=== PATIENT | male | born 1980 | race Hispanic/Latino ===

== ENCOUNTER 2020-01-06 18:49 | Inpatient (IN) | payer BC ==
[~2020-01-06] VITALS: Ht 181.6 cm; Wt 184.6 kg
[2020-01-06] MEDS ORDERED: ACETAMINOPHEN 325 MG TAB PO ONE ×2 (19:15→19:45)
[2020-01-06] MEDS ORDERED: SODIUM CHLORIDE 0.9% 1000ML 1,000 ML IV ONE (19:15)
[2020-01-06 19:22] LABS: BASOPHILS # (AUTO) 0.1 (0.0-0.1); BASOPHILS % 0.4 % (0.0-1.0); EOSINOPHILS % 0.2 % (0.0-6.0); HEMATOCRIT 42.1 % (38.2-49.6); HEMOGLOBIN 13.7 g/dL (14.0-18.0); LYMPHOCYTES # (AUTO) 1.5 (1.0-3.2); MEAN CORPUSCULAR HEMOGLOBIN 25.4 pg (28-32); MEAN CORPUSCULAR HGB CONC 32.5 g/dL (31-35); MONOCYTES # (AUTO) 1.6 (0.2-0.8); MONOCYTES % 6.4 % (4.4-11.3); NEUTROPHILS # (AUTO) 21.3 (2.1-6.9); NEUTROPHILS % 86.1 % (38.7-80.0); PLATELET COUNT 267 x10e3/uL (140-360); RED CELL DISTRIBUTION WIDTH 14.3 % (11.7-14.4)
[2020-01-06 19:32] LABS: BILIRUBIN,URINE NEGATIVE (NEGATIVE); CLARITY,URINE SL CLOUDY (CLEAR); COLOR,URINE YELLOW (YELLOW); KETONES,URINE NEGATIVE (NEGATIVE); LEUKOCYTE ESTERASE ,URINE NEGATIVE (NEGATIVE); NITRITE,URINE NEGATIVE (NEGATIVE); PROTEIN,URINE DIPSTICK 1+ (NEGATIVE); URINE UROBILINOGEN 0.2 mg/dL (0.2 - 1)
[2020-01-06 19:37] LABS: INR 1.03; PROTHROMBIN TIME 13.7 seconds (11.9-14.5)
[2020-01-06 19:38] LABS: PARTIAL THROMBOPLASTIN TIME 30.2 seconds (23.8-35.5)
[2020-01-06 19:44] LABS: ALANINE AMINOTRANSFERASE 33 IU/L (0-55); ALBUMIN 4.1 g/dL (3.5-5.0); ALKALINE PHOSPHATASE 94 IU/L (40-150); ANION GAP 17.5 mmol/L (8-16); BLOOD UREA NITROGEN 11 mg/dL (7-26); BUN/CREATININE RATIO 12 (6-25); CALCIUM 9.5 mg/dL (8.4-10.2); CARBON DIOXIDE 22 mmol/L (22-29); CHLORIDE 101 mmol/L (98-107); CREATINE KINASE 162 IU/L (30-200); CREATININE, SERUM 0.94 mg/dL (0.72-1.25); EST GLOMERULAR FILTRATION RATE > 60 ML/MIN (60-); GLUCOSE 113 mg/dL (74-118); POTASSIUM 3.5 mmol/L (3.5-5.1); SODIUM 137 mmol/L (136-145)
[2020-01-06] MEDS ORDERED: PIPER-TAZ 3.375 GM 50 ML IV STA (19:46)
[2020-01-06] MEDS ORDERED: VANCOMYCIN 1GM/NS 250 ML 250 ML IV STA (19:52)
[2020-01-06] MEDS ORDERED: SODIUM CHLORIDE 0.9% 1000ML 2,000 ML ONE (19:59)
--- NOTE | 2020-01-06 20:00 | NUR ---
US TECH AT PTS BS
--- NOTE | 2020-01-06 20:26 | Diagnostic Imaging Report ---
EXAMINATION: CHEST SINGLE (PORTABLE) INDICATION: Fever ^DX ^[id number] ^1959 ^Y COMPARISON: None FINDINGS: TUBES and LINES: None. LUNGS: Perihilar peribronchial hazy opacity could be due to bronchitis. No consolidated pneumonia PLEURA: No pleural effusion or pneumothorax. HEART AND MEDIASTINUM: The cardiomediastinal silhouette is unremarkable. BONES AND SOFT TISSUES: No acute osseous lesion. Soft tissues are unremarkable. UPPER ABDOMEN: No free air under the diaphragm. IMPRESSION: Perihilar peribronchial hazy opacity could be due to bronchitis. No consolidated pneumonia Signed by: Dr. Jayden Richey M.D. on 01/06/2020 8:23 PM
[2020-01-06] MEDS ORDERED: ONDANSETRON HCL INJ 2MG/ML 2ML 2 MG/ML VIAL IV PRN (21:15)
--- OUTSIDE RECORDS SUMMARY | 2020-01-06 22:00 | XMS REPORT ---
Author [facility] Address Unknown Phone Unavailable Care Team Providers Care Application Support Engineer Name Role Phone Galindo SHEPPARD Unavailable Unavailable Problems This patient has no known problems. Allergies, Adverse Reactions, Alerts This patient has no known allergies or adverse reactions. Medications This patient has no known medications. Results Test Description Test Time Test Comments Text Results Atomic Results Result Comments CHEST SINGLE (PORTABLE) 2020-01-06 20:22:00 [place] [address] Patient Name: SUDHA STEELE MR #: [id number] : 1980 Age/Sex: 39/M Req #: [id number] Adm Physician: Ordered by: TARIK SLAUGHTER MD Report #: [id number] Location: ER Room/Bed: Procedure: [id number] DX/CHEST SINGLE (PORTABLE) Exam Date: 01/06/20 Exam Time: 1959 REPORT STATUS: Signed EXAMINATION: CHEST SINGLE (PORTABLE) INDICATION: Fever DX [id number] Y COMPARISON: None FINDINGS: TUBES and LINES: None. LUNGS: Perihilar peribronchial hazy opacity could be due to bronchitis. No consolidated pneumonia PLEURA: No pleural effusion or pneumothorax. HEART AND MEDIASTINUM: The cardiomediastinal silhouette is unremarkable. BONES AND SOFT TISSUES: No acute osseous lesion. Soft tissues are unremarkable. UPPER ABDOMEN: No free air under the diaphragm. IMPRESSION: Perihilar peribronchial hazy opacity could be due to bronchitis. No consolidated pneumonia Signed by: Dr. Jayden Richey M.D. on 01/06/2020 8:23 PM Dictated By: JAYDEN RICHEY MD, MD 22 Transcribed By: WILLIAN on 01/06/202022 COPY TO: TARIK SLAUGHTER MD
--- NOTE | 2020-01-06 23:00 | NUR ---
Pt admitted to room 201 via WC from home. Pt alert and oriented to name, hospital, diagnosis: cellulitis RLE and severe sepsis. RLE red, warm to touch, and edematous non pitting. Pt morbid obese. Lungs CTA. Last BM 01/06, brown, soft. Continent B/B. Denies dysuria. 20g IV right FA patent, flushed with 10ml NS. Oriented to room. Call light within reach. Bed low and locked.
[2020-01-06] MEDS: SODIUM CHLORIDE 0.9% 1000ML 1,000 ML IV SCH (23:05)
[2020-01-06 23:22] VITALS: BP 139/89
[2020-01-06] MEDS: ACETAMINOPHEN 325 MG TAB PO PRN (23:45)
[2020-01-06 23:51] VITALS: BP 139/89
[2020-01-06] MEDS ORDERED: INFLUENZA VIRUS VAC SPLIT INJ 0.5 ML SYR IM SCH (23:53)
[2020-01-07] MEDS: PIPER-TAZ 3.375 GM 50 ML IV SCH ×3 (04:22→20:15)
[2020-01-07 05:17] LABS: BASOPHILS # (AUTO) 0.1 (0.0-0.1); BASOPHILS % 0.5 % (0.0-1.0); EOSINOPHILS % 0.1 % (0.0-6.0); HEMATOCRIT 38.7 % (38.2-49.6); HEMOGLOBIN 12.5 g/dL (14.0-18.0); LYMPHOCYTES # (AUTO) 1.4 (1.0-3.2); LYMPHOCYTES % 8.1 % (18.0-39.1); MEAN CORPUSCULAR HEMOGLOBIN 25.4 pg (28-32); MEAN CORPUSCULAR HGB CONC 32.3 g/dL (31-35); MEAN CORPUSCULAR VOLUME 78.7 fL (81-99); MONOCYTES # (AUTO) 0.7 (0.2-0.8); MONOCYTES % 4.3 % (4.4-11.3); NEUTROPHILS # (AUTO) 14.7 (2.1-6.9); NEUTROPHILS % 86.6 % (38.7-80.0); PLATELET COUNT 190 x10e3/uL (140-360); RED BLOOD COUNT 4.92 x10e6/uL (4.3-5.7); RED CELL DISTRIBUTION WIDTH 14.4 % (11.7-14.4)
[2020-01-07 05:37] LABS: ALANINE AMINOTRANSFERASE 25 IU/L (0-55); ALBUMIN 3.3 g/dL (3.5-5.0); ALKALINE PHOSPHATASE 85 IU/L (40-150); ANION GAP 13.1 mmol/L (8-16); BLOOD UREA NITROGEN 10 mg/dL (7-26); BUN/CREATININE RATIO 12 (6-25); CALCIUM 8.5 mg/dL (8.4-10.2); CARBON DIOXIDE 23 mmol/L (22-29); CHLORIDE 104 mmol/L (98-107); CREATININE, SERUM 0.84 mg/dL (0.72-1.25); EST GLOMERULAR FILTRATION RATE > 60 ML/MIN (60-); GLUCOSE 104 mg/dL (74-118); POTASSIUM 3.1 mmol/L (3.5-5.1); SODIUM 137 mmol/L (136-145)
[2020-01-07] MEDS ORDERED: POTASSIUM CHLORIDE 10MEQ EA PO ONE (06:00)
[2020-01-07 08:30] VITALS: BP 154/89
[2020-01-07] MEDS: ACETAMINOPHEN 325 MG TAB PO PRN (08:30)
[2020-01-07] MEDS: VANCOMYCIN 1GM/NS 250 ML 250 ML IV SCH ×2 (08:30→21:30)
[2020-01-07 08:37] VITALS: BP 154/89
[2020-01-07 12:00] VITALS: BP 148/76
[2020-01-07 16:00] VITALS: BP 157/103
[2020-01-07] MEDS: AMLODIPINE BESYLATE 10 MG TAB PO SCH (16:12)
[2020-01-07] MEDS: LISINOPRIL 20 MG TAB PO SCH (16:12)
[2020-01-07] MEDS: HYDROCHLOROTHIAZIDE 25 MG TAB PO SCH (16:12)
[2020-01-07] MEDS: METOPROLOL SUCCINATE 25 MG TAB XL PO SCH (16:12)
[2020-01-07] MEDS: SODIUM CHLORIDE 0.9% 1000ML 1,000 ML IV SCH (16:12)
[2020-01-07] MEDS: TRAMADOL HCL 50 MG TAB PO PRN (17:26)
--- NOTE | 2020-01-07 18:14 | NUR ---
patient up in bed, Alert with no distress, call light in reach, keep monitoring
--- NOTE | 2020-01-07 18:55 | NUR ---
Bedside rounds completed with morning nurse. Pt alert and oriented to name, walking from bathroom with IV pole. Denies pain at this time. Call light within reach. Will continue to monitor.
[2020-01-07 20:00] VITALS: BP 139/82
[2020-01-07] MEDS: ATORVASTATIN 20 MG TAB PO SCH (21:00)
[2020-01-08] VITALS (8 sets, daily range): BP systolic 132–172; BP diastolic 72–104
[2020-01-08] MEDS: PIPER-TAZ 3.375 GM 50 ML IV SCH (04:00)
[2020-01-08] MEDS: LISINOPRIL 20 MG TAB PO SCH (09:44)
[2020-01-08] MEDS: AMLODIPINE BESYLATE 10 MG TAB PO SCH (09:44)
[2020-01-08] MEDS: HYDROCHLOROTHIAZIDE 25 MG TAB PO SCH (09:44)
[2020-01-08] MEDS: METOPROLOL SUCCINATE 25 MG TAB XL PO SCH (09:45)
[2020-01-08] MEDS: VANCOMYCIN 1GM/NS 250 ML 250 ML IV SCH ×2 (09:46→21:00)
[2020-01-08] MEDS ORDERED: ONDANSETRON HCL 4 MG ORAL DISINTEGRATING TAB PO PRN (10:30)
[2020-01-08] MEDS: CEFEPIME 1GM/NS 0.9% 50 ML 50 ML IV SCH ×2 (12:30→23:45)
[2020-01-08] MEDS: HYDRALAZINE HCL 20 MG/ML VIAL IV PRN (17:57)
--- NOTE | 2020-01-08 19:21 | Consultation ---
DATE OF CONSULTATION: 01/08/2020 CHIEF COMPLAINT: Cellulitis of the right leg. HISTORY OF PRESENT ILLNESS: This patient is a very pleasant 39-year-old gentleman, who has history of hypertension, obesity, comes in with redness and swelling of his leg, which started for two days, and fever, chills, not feeling well. The patient had history of abscess before, but he has never been sick before. The patient came to the emergency room. His told him he had to come because he was really sick. PAST MEDICAL HISTORY: Significant for obesity and hypertension. PAST SURGICAL HISTORY: Abscess, I and D. ALLERGIES: NKA. SOCIAL HISTORY: There is no smoking, drug abuse, or alcohol abuse. 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 REVIEW OF SYSTEMS: At the present time, HEENT negative, Pulmonary negative, cardiac negative, negative, skin there are no other rashes except on the leg. PHYSICAL EXAMINATION: GENERAL: He is currently alert, oriented, does not seem to be in acute distress. VITAL SIGNS: Stable, currently afebrile. HEENT: He is not icteric. NECK: Supple. CHEST: Clear bilateral. HEART: S1, S2, no murmur. ABDOMEN: Soft and obese. No tenderness. No hepatosplenomegaly. EXTREMITIES: The right leg, there is erythema, there is edema involving the whole leg from the ankle to the knee. LABORATORY DATA: Reviewed, his creatinine was 0.84. White count 16.9, hemoglobin 12.5. IMPRESSION: Sepsis on admission, cellulitis of the right leg. I agree with vancomycin. Discontinue Zosyn. We will add cefepime for gram-negative coverage. Await blood cultures. Adjust vancomycin dose according to his kidney function. We will follow up clinically. We anticipate to be in the hospital for a few more days. Thank you for asking me to see this patient. MD ELI Sahni/[place] /[id number]
[2020-01-08] MEDS: ATORVASTATIN 20 MG TAB PO SCH (21:03)
[2020-01-08] MEDS: TRAMADOL HCL 50 MG TAB PO PRN (21:03)
[2020-01-09] VITALS (8 sets, daily range): BP systolic 121–151; BP diastolic 59–91
--- NOTE | 2020-01-09 07:03 | NUR ---
Received bedside report from LUDIN Lacey. Patient awake, pleasant, resting at this time. Denies pain with no visible signs of distress or discomfort noted. Family at bedside. Call light within reach.
[2020-01-09] MEDS ORDERED: VANCOMYCIN 1GM/NS 250 ML 250 ML IV SCH (09:00)
--- NOTE | 2020-01-09 09:53 | Progress Note ---
DATE: 01/09/2020 SUBJECTIVE: A 39-year-old male comes in with acute lymphangitis and cellulitis of the right lower extremity. Currently, feeling better. The patient was deemed to be septic. No chest pain. No shortness of breath. Pain is better. The patient's white count is better. Complains of some heaviness in the lower extremities. OBJECTIVE: VITAL SIGNS: Temperature is 96.4, pulse 73, respirations of 18, blood pressure is 133/77, pulse oximeter of 96% on room air. HEENT: Normocephalic and atraumatic. The patient is morbidly obese. CVS: S1 and S2 normal. Regular rate and rhythm. ABDOMEN: Nontender and nondistended. EXTREMITIES: Right lower extremity with erythema, tenderness, and also swelling in the right calf with extension into the upper thigh area. LABORATORY VALUES: Sodium from 01/07 is 137, potassium is 3.1. Lactic acid was 3. Initially, came down to 1.6. Coags normal. Toxicology, vancomycin trough is 4.9. Chemistries, sodium 137, potassium is 3.1. Urine was normal, cloudy . MICROBIOLOGY: Urine culture negative. No growth in 48 hours and blood cultures either. IMAGING: Venous doppler lower extremity was done, no signs of DVT. ASSESSMENT: Mr. Froy Cagle is a 39-year-old gentleman with: Cellulitis of the right lower extremity. Continue on vancomycin. The patient also has addition of cefepime for gram-negative coverage. Blood cultures are negative. Continue monitoring his kidney functions. Continue monitoring CBC. Lytes will be replaced for tomorrow. Further recommendation per clinical course. We will continue to monitor the patient. The patient has been advised to keep the leg elevated and also continue with antibiotics. The patient also with DVT prophylaxis, we will start him on heparin. MD ZAN Calle/MODL /[id number]
[2020-01-09] MEDS: HYDROCHLOROTHIAZIDE 25 MG TAB PO SCH (10:07)
[2020-01-09] MEDS: LISINOPRIL 20 MG TAB PO SCH (10:08)
[2020-01-09] MEDS: AMLODIPINE BESYLATE 10 MG TAB PO SCH (10:08)
[2020-01-09] MEDS: METOPROLOL SUCCINATE 25 MG TAB XL PO SCH (10:09)
[2020-01-09] MEDS: VANCOMYCIN 300 ML IV SCH ×2 (10:23→21:09)
[2020-01-09] MEDS: CEFEPIME 1GM/NS 0.9% 50 ML 50 ML IV SCH ×2 (12:54→23:40)
[2020-01-09] MEDS ORDERED: SODIUM CHLORIDE 0.9% 250ML 250 ML ONE (13:03)
[2020-01-09] MEDS: ENOXAPARIN SOD INJ 40 MG/0.4 ML SYR SC SCH (17:26)
[2020-01-09] MEDS: HYDRALAZINE HCL 20 MG/ML VIAL IV PRN (17:34)
[2020-01-09] MEDS: TRAMADOL HCL 50 MG TAB PO PRN (19:54)
[2020-01-09] MEDS: ATORVASTATIN 20 MG TAB PO SCH (21:09)
[2020-01-09] MEDS: ACETAMINOPHEN 325 MG TAB PO PRN (23:40)
[2020-01-10] VITALS (8 sets, daily range): BP systolic 99–147; BP diastolic 57–90
[2020-01-10 05:29] LABS: BASOPHILS # (AUTO) 0.1 (0.0-0.1); EOSINOPHILS # (AUTO) 0.6 (0.0-0.4); EOSINOPHILS % 6.8 % (0.0-6.0); HEMATOCRIT 40.3 % (38.2-49.6); HEMOGLOBIN 12.5 g/dL (14.0-18.0); LYMPHOCYTES # (AUTO) 2.8 (1.0-3.2); LYMPHOCYTES % 29.8 % (18.0-39.1); MEAN CORPUSCULAR HEMOGLOBIN 24.8 pg (28-32); MEAN CORPUSCULAR VOLUME 79.8 fL (81-99); MONOCYTES # (AUTO) 0.8 (0.2-0.8); NEUTROPHILS # (AUTO) 4.9 (2.1-6.9); NEUTROPHILS % 52.9 % (38.7-80.0); PLATELET COUNT 296 x10e3/uL (140-360); RED BLOOD COUNT 5.05 x10e6/uL (4.3-5.7); RED CELL DISTRIBUTION WIDTH 14.3 % (11.7-14.4)
[2020-01-10 05:36] LABS: ANION GAP 14.5 mmol/L (8-16); BLOOD UREA NITROGEN 13 mg/dL (7-26); BUN/CREATININE RATIO 18 (6-25); CARBON DIOXIDE 23 mmol/L (22-29); CHLORIDE 105 mmol/L (98-107); CREATININE, SERUM 0.73 mg/dL (0.72-1.25); EST GLOMERULAR FILTRATION RATE > 60 ML/MIN (60-); GLUCOSE 108 mg/dL (74-118); POTASSIUM 3.5 mmol/L (3.5-5.1); SODIUM 139 mmol/L (136-145)
--- NOTE | 2020-01-10 07:30 | NUR ---
Received patient, alert and responsive, no apparent distress at this time, call light within reach, bed alarms in place, will monitor.
[2020-01-10] MEDS: AMLODIPINE BESYLATE 10 MG TAB PO SCH (08:37)
[2020-01-10] MEDS: HYDROCHLOROTHIAZIDE 25 MG TAB PO SCH (08:37)
[2020-01-10] MEDS: LISINOPRIL 20 MG TAB PO SCH (08:37)
[2020-01-10] MEDS: METOPROLOL SUCCINATE 25 MG TAB XL PO SCH (08:38)
[2020-01-10] MEDS: VANCOMYCIN 300 ML IV SCH ×2 (10:00→21:17)
--- NOTE | 2020-01-10 10:48 | Progress Note ---
DATE: 01/10/2020 SUBJECTIVE: A 39-year-old male, comes in with right lower extremity cellulitis. The patient still complains of pain, especially after 5 o'clock, who was asked to keep the foot above heart level. The patient is compliant with that right now. No chest pain or shortness of breath. No nausea, vomiting, or diarrhea, has some occasional headaches once in a while. OBJECTIVE: VITAL SIGNS: Temperature is 95.6, afebrile for the last 24-48 hours, pulse 71, respirations of 18, blood pressure is 134/81, and 98% on room air. HEENT: Normocephalic and atraumatic. Pupils are reactive to light and accommodation. CVS: S1 and S2 normal. Regular rate and rhythm. ABDOMEN: Nontender, nondistended. Right lower extremity is positive for tenderness, erythema, and swelling in the calf area, ankle area and also extending all the way to upper thigh. MICROBIOLOGY: Urine culture is negative. No growth in the last 24 hours and blood culture either. IMAGING STUDIES: Venous Dopplers were negative. ASSESSMENT: A 39-year-old gentleman with, 1. Cellulitis of the right lower extremity. 2. Morbid obesity. 3. Leukocytosis. PLAN: Continue monitoring his CBCs. Lytes will be replaced as needed. The patient is currently on vancomycin and we will continue to monitor the patient. Further recommendation per clinical course. Medications reviewed. Additional medicines include metoprolol for hypertension, hydrochlorothiazide for hypertension, lisinopril for hypertension, amlodipine for hypertension. The patient is also on cefepime in addition to vancomycin for his cellulitis and has been getting subcutaneous Lovenox for anticoagulation. MD KIMBERLI CalleJ/MODL /[id number]
[2020-01-10] MEDS: CEFEPIME 1GM/NS 0.9% 50 ML 50 ML IV SCH ×2 (12:30→23:49)
[2020-01-10] MEDS: ENOXAPARIN SOD INJ 40 MG/0.4 ML SYR SC SCH (17:00)
[2020-01-10] MEDS: ATORVASTATIN 20 MG TAB PO SCH (21:17)
[2020-01-11] VITALS (7 sets, daily range): BP systolic 111–142; BP diastolic 58–82
[2020-01-11] MEDS: HYDROCHLOROTHIAZIDE 25 MG TAB PO SCH (08:13)
[2020-01-11] MEDS: LISINOPRIL 20 MG TAB PO SCH (08:14)
[2020-01-11] MEDS: METOPROLOL SUCCINATE 25 MG TAB XL PO SCH (08:14)
[2020-01-11] MEDS: AMLODIPINE BESYLATE 10 MG TAB PO SCH (08:14)
--- NOTE | 2020-01-11 09:51 | NUR ---
NOTIFIED DR CARRENO THAT PO PRESCRIPTION FOR ANTIBIOTIC IS IN THE CHART AND PT CAN BE DC HOME FROM ID [facility]ANDPOINT. DR CARRENO STATED TO KEEP PT FOR NOW AND CONTINUE WITH IV ABX AND HE WILL MAKE A DECISION REGARDING DC
[2020-01-11] MEDS: VANCOMYCIN 300 ML IV SCH ×2 (10:52→21:22)
--- NOTE | 2020-01-11 13:27 | NUR ---
Left message for Dr. De La O regarding dc. ID left prescription for PO abx on chart. Did not get a response back. Escalated to Dr. Tineo.
[2020-01-11] MEDS: CEFEPIME 1GM/NS 0.9% 50 ML 50 ML IV SCH (13:30)
[2020-01-11] MEDS: ENOXAPARIN SOD INJ 40 MG/0.4 ML SYR SC SCH (17:27)
--- NOTE | 2020-01-11 19:00 | NUR ---
RECEIVED PATIENT IN BEDSIDE SHIFT REPORT. PATIENT RESTING IN BED AT THIS TIME, NO PAIN REPORTED. NO S&S OF DISTRESS NOTED. REDNESS TO RLE NOTED. BED LOCKED IN LOWEST POSITION, SIDE RAILS UPX2, CALL LIGHT IN REACH.
--- NOTE | 2020-01-11 20:42 | NUR ---
PATIENT REQUESTED BENADRYL FOR ITCHING IN RLE, SPOKE WITH MD CARRENO, NEW ORDERS RECEIVED.
[2020-01-11] MEDS ORDERED: DIPHENHYDRAMINE HCL 25 MG CAP PO PRN (20:45)
[2020-01-11] MEDS: ATORVASTATIN 20 MG TAB PO SCH (21:22)
[2020-01-11] MEDS: ACETAMINOPHEN 325 MG TAB PO PRN (21:23)
[2020-01-12] MEDS: CEFEPIME 1GM/NS 0.9% 50 ML 50 ML IV SCH (00:32)
[2020-01-12 00:42] VITALS: BP 133/82
[2020-01-12 00:48] VITALS: BP 113/72
[2020-01-12 06:11] VITALS: BP 122/78
[2020-01-12 07:35] VITALS: BP 129/84
[2020-01-12] MEDS: HYDROCHLOROTHIAZIDE 25 MG TAB PO SCH (08:07)
[2020-01-12] MEDS: AMLODIPINE BESYLATE 10 MG TAB PO SCH (08:09)
[2020-01-12] MEDS: LISINOPRIL 20 MG TAB PO SCH (08:09)
[2020-01-12] MEDS: METOPROLOL SUCCINATE 25 MG TAB XL PO SCH (08:10)
[2020-01-12] MEDS ORDERED: DOXYCYCLINE HY100 MG PO (08:13)
[2020-01-12 08:30] VITALS: BP 129/84
--- NOTE | 2020-01-13 04:12 | Discharge Summary ---
DISCHARGE DIAGNOSES: 1. Right lower extremity cellulitis. 2. Hypertension. 3. Sepsis secondary to cellulitis. HISTORY OF PRESENT ILLNESS AND HOSPITAL COURSE: See hospital chart for full details. Patient is a gentleman presented with right lower extremity cellulitis with sepsis and leukocytosis, was brought in and placed on IV antibiotics initially, which showed some slight worsening, but after continued IV antibiotics, discharge showing significant improvement. At the time of discharge, the patient is feeling really good. He has had about 85% improvement. He really wanted to go home. He was seen by Infectious Disease. His leukocytosis resolved. He was then switched over to p.o. doxycycline for two more weeks 100 mg b.i.d. He will follow up with me in about two weeks as well as Infectious Disease. The patient did have negative Dopplers and he will stay off work for another week to help the leg heal. He was given note for that. Please see hospital chart for full details. MD JOSE ANGEL Navas/[place] /[id number]
== END 2020-01-12 08:47 | disposition home or self-care (01) | DRG 872 ==
LOC: ER 18:49 → ERHOLD 21:58 → MED/SURG2 22:39
PROVIDERS: ADMIT Internal Medicine; ATTEND Internal Medicine
DX: A41.9 Sepsis, unspecified organism (principal); L03.115 Cellulitis of right lower limb; Z68.43 Body mass index [BMI] 50.0-59.9, adult; E87.2 Acidosis; E87.6 Hypokalemia; E66.01 Morbid (severe) obesity due to excess calories; Z71.3 Dietary counseling and surveillance; E78.00 Pure hypercholesterolemia, unspecified; J40 Bronchitis, not specified as acute or chronic; E87.8 Other disorders of electrolyte and fluid balance, not elsewhere classified
CPT/HCPCS: 36415; 71045; 80048; 80053; 80202; 81001; 82550; 82553; 83605; 84484; 85025; 85610; 85730; 87040; 87086; 93005; 93971; 96361; 99284; J0360; J0692; J1650; J2543; J3370; J7030; J7050